=== PATIENT | female | born 1995 | race African-American/Black ===

== ENCOUNTER 2018-08-09 15:06 | Emergency (ER) | payer SELFPAY | END 2018-08-09 16:18 | disposition home or self-care (01) | LOC: ERS 15:06 | DX: H61.21 Impacted cerumen, right ear (principal); J31.0 Chronic rhinitis; F17.210 Nicotine dependence, cigarettes, uncomplicated; F32.9 Major depressive disorder, single episode, unspecified | CPT/HCPCS: 99283 ==

== ENCOUNTER 2018-09-26 16:19 | Emergency (ER) | payer SELFPAY | END 2018-09-26 18:20 | disposition home or self-care (01) | LOC: ERS 16:19 | DX: T16.1XXA Foreign body in right ear, initial encounter (principal); F32.9 Major depressive disorder, single episode, unspecified; F17.210 Nicotine dependence, cigarettes, uncomplicated | CPT/HCPCS: 99282 ==

== ENCOUNTER 2018-10-20 18:52 | Emergency (ER) | payer SELFPAY | END 2018-10-20 19:25 | disposition home or self-care (01) | LOC: ERS 18:52 | DX: M26.602 Left temporomandibular joint disorder, unspecified (principal); I10 Essential (primary) hypertension; F32.9 Major depressive disorder, single episode, unspecified; F17.210 Nicotine dependence, cigarettes, uncomplicated | CPT/HCPCS: 99282 ==

== ENCOUNTER 2018-11-16 18:33 | Emergency (ER) | payer SELFPAY ==
--- NOTE | 2018-11-16 20:10 | RAD ---
RADIOGRAPH CHEST 2 VIEWS: DATE: 11/16/2018 HISTORY: 23-year-old female with cough FINDINGS: There is no airspace density, pulmonary edema, pleural effusion, pneumothorax, or cardiomegaly. IMPRESSION: No acute cardiopulmonary findings.
== END 2018-11-16 20:45 | disposition home or self-care (01) ==
LOC: ERS 18:33
DX: J20.9 Acute bronchitis, unspecified (principal); I10 Essential (primary) hypertension; F17.210 Nicotine dependence, cigarettes, uncomplicated
CPT/HCPCS: 71046

== ENCOUNTER 2021-02-24 16:01 | Emergency (ER) | payer SELFPAY ==
[2021-02-25 11:37] LABS: SARS-CoV-2 PCR by NAA Not Detected (NotDetected)
== END 2021-02-24 17:31 | disposition home or self-care (01) ==
LOC: ERS 16:01
DX: R51.9 Headache, unspecified (principal); Z20.822 Contact with and (suspected) exposure to COVID-19; I10 Essential (primary) hypertension; F17.210 Nicotine dependence, cigarettes, uncomplicated
CPT/HCPCS: 99283; U0003; U0005

== ENCOUNTER 2021-05-12 17:55 | Emergency (ER) | payer SELFPAY ==
[2021-05-13 08:18] LABS: SARS-CoV-2 PCR by NAA Not Detected (NotDetected)
== END 2021-05-12 19:56 | disposition home or self-care (01) ==
LOC: ERS 17:55
DX: R05.9 Cough, unspecified (principal); Z20.822 Contact with and (suspected) exposure to COVID-19; I10 Essential (primary) hypertension; F17.210 Nicotine dependence, cigarettes, uncomplicated; R43.9 Unspecified disturbances of smell and taste
CPT/HCPCS: 99281; U0003; U0005

== ENCOUNTER 2021-06-02 19:37 | Emergency (ER) | payer SELFPAY | END 2021-06-02 20:57 | disposition left against medical advice (07) | LOC: ERS 19:37 | DX: Z53.21 Procedure and treatment not carried out due to patient leaving prior to being seen by health care provider (principal) ==